=== PATIENT | female | born 1995 | race Two or more races ===

== ENCOUNTER 2019-09-21 12:05 | Observation (INO) | payer MEDICAID, OTHER ==
[~2019-09-21 12:05] MED LIST: CEPH-37 PO
[2019-09-21] MEDS ORDERED: PREN-145 OR (12:39)
== END 2019-09-21 13:15 | disposition home or self-care (01) | DRG 566 ==
LOC: LDRP 12:05
PROVIDERS: ADMIT Obstetrics & Gynecology; ATTEND Obstetrics & Gynecology
DX: O62.9 Abnormality of forces of labor, unspecified (principal); Z3A.39 39 weeks gestation of pregnancy
CPT/HCPCS: 59025; 81002; G0378

== ENCOUNTER 2019-09-22 23:40 | Observation (INO) | payer MEDICAID ==
[~2019-09-22 23:40] MED LIST changes: -CEPH-37 PO; +PREN-145 OR
== END 2019-09-23 00:55 | disposition home or self-care (01) | DRG 861 ==
LOC: LDRP 23:40
PROVIDERS: ADMIT Obstetrics & Gynecology; ATTEND Obstetrics & Gynecology
DX: Z34.93 Encounter for supervision of normal pregnancy, unspecified, third trimester (principal); Z3A.34 34 weeks gestation of pregnancy
CPT/HCPCS: 59025; 81002; G0378